=== PATIENT | male | born 1975 | race Caucasian/White ===

== ENCOUNTER 2018-03-16 03:03 | Inpatient (IN) | payer BC ==
[~2018-03-16] VITALS: Ht 177.8 cm; Wt 120.8 kg
[2018-03-16] VITALS (10 sets, daily range): BP systolic 97–147; BP diastolic 53–103
[2018-03-16 03:34] LABS: BILIRUBIN NEGATIVE (NEGATIVE); BLOOD NEGATIVE (NEGATIVE); CLARITY CLEAR (CLEAR); COLOR YELLOW (YELLOW); GLUCOSE NEGATIVE (NEGATIVE); KETONE NEGATIVE (NEGATIVE); LEUKO ESTERASE NEGATIVE (NEGATIVE); NITRITE NEGATIVE (NEGATIVE); UROBILINOGEN 0.2 E.U./dl (0.2-1.0)
[2018-03-16 03:42] LABS: BACTERIA TRACE; RBC 0-2 rbc/hpf (0-2); WBC 0-2 wbc/hpf (0-5)
[2018-03-16 04:13] LABS: BASO # 0.1 10*3/uL (0.0-0.1); BASO % 0.4 % (0.0-1.0); EOS # 0.2 10*3/uL (0.0-0.4); EOS % 1.1 % (1.0-4.0); HEMOGLOBIN 16.6 g/dl (14.0-18.0); LYMPH # 1.3 10*3/uL (1.3-4.4); LYMPH % 8.8 % (27.0-41.0); MEAN CELL VOLUME 84.7 fl (80.0-94.0); MEAN CORPUSCULAR HGB 29.3 pg (27.0-31.0); MEAN CORPUSCULAR HGB CONC 34.6 g/dl (33.0-37.0); MEAN PLATELET VOLUME 9.7 fl (9.6-12.3); MONO # 0.6 10*3/uL (0.1-1.0); MONO % 3.9 % (3.0-9.0); NEUT # 12.2 10*3/uL (2.3-7.9); NEUT % 85.4 % (47.0-73.0); PLATELET COUNT AUTOMATED 192 10*3/uL (130-400); RED BLOOD COUNT 5.67 10*6/uL (4.50-5.90); RED CELL DISTRI WIDTH 12.2 % (0-14.5); WHITE BLOOD COUNT 14.3 10*3/uL (4.8-10.8)
[2018-03-16 04:28] LABS: ALBUMIN 4.4 gm/dl (3.1-4.5); ALKALINE PHOSPHATASE 58 U/L (45-117); BUN 22 mg/dl (7-24); CHLORIDE 104 mmol/L (98-107); CREATININE 1.07 mg/dL (0.70-1.30); LIPASE 82 U/L (73-393); POTASSIUM 3.6 mmol/L (3.5-5.1); SGOT/AST 18 IU/L (3-35); SGPT/ALT 41 U/L (12-78); SODIUM 141 mmol/L (136-145); TOTAL PROTEIN 7.7 gm/dL (6.4-8.2)
[2018-03-17] VITALS: BP 110/76
[2018-03-17 06:44] LABS: BASO % 0.3 % (0.0-1.0); EOS # 0.1 10*3/uL (0.0-0.4); EOS % 2.1 % (1.0-4.0); LYMPH # 1.4 10*3/uL (1.3-4.4); MEAN CELL VOLUME 85.5 fl (80.0-94.0); MEAN CORPUSCULAR HGB 28.9 pg (27.0-31.0); MEAN CORPUSCULAR HGB CONC 33.8 g/dl (33.0-37.0); MEAN PLATELET VOLUME 9.5 fl (9.6-12.3); MONO # 0.4 10*3/uL (0.1-1.0); MONO % 6.7 % (3.0-9.0); NEUT # 4.3 10*3/uL (2.3-7.9); NEUT % 68.7 % (47.0-73.0); PLATELET COUNT AUTOMATED 159 10*3/uL (130-400); RED BLOOD COUNT 4.91 10*6/uL (4.50-5.90); RED CELL DISTRI WIDTH 12.2 % (0-14.5); WHITE BLOOD COUNT 6.3 10*3/uL (4.8-10.8)
[2018-03-17 06:45] LABS: HEMOGLOBIN 14.2 g/dl (14.0-18.0)
[2018-03-17 07:05] LABS: BUN 13 mg/dl (7-24); CHLORIDE 106 mmol/L (98-107); CHOLESTEROL 134 mg/dL (<200); CREATININE 0.84 mg/dL (0.70-1.30); PHOSPHOROUS 2.4 mg/dL (2.5-4.9); POTASSIUM 3.6 mmol/L (3.5-5.1); SODIUM 142 mmol/L (136-145); TRIGLYCERIDES 136 mg/dl (<150); VLDL CHOLESTEROL 27 mg/dL (6-40)
[2018-03-17 07:14] LABS: FREE T4 0.96 ng/dl (0.76-1.46); HDL CHOLESTEROL 56 mg/dl (40-60); LDL CHOLESTEROL 51 mg/dL (9-159)
[2018-03-17 08:00] VITALS: BP 123/78
[2018-03-17] MEDS ORDERED: FLAGYL500 MG PO (11:12)
[2018-03-17] MEDS ORDERED: CIPRO500 MG PO (11:12)
== END 2018-03-17 12:59 | disposition home or self-care (01) | DRG 392 ==
LOC: ED 03:03 → 4E 07:19 → EDHOLD 07:19 → 4E 07:32
PROVIDERS: Emergency Medicine Emergency Medical Services; Student in an Organized Health Care Education/Training Program
DX: K52.9 Noninfective gastroenteritis and colitis, unspecified (principal); E83.41 Hypermagnesemia; R00.1 Bradycardia, unspecified; R73.9 Hyperglycemia, unspecified; E66.9 Obesity, unspecified; Z79.899 Other long term (current) drug therapy; Z83.3 Family history of diabetes mellitus; Z82.49 Family history of ischemic heart disease and other diseases of the circulatory system; Z68.38 Body mass index [BMI] 38.0-38.9, adult